=== PATIENT | male | born 1995 | race African-American/Black ===

== ENCOUNTER 2018-05-05 22:47 | Emergency (ER) | payer SELFPAY ==
[~2018-05-05] VITALS: Ht 185.4 cm; Wt 90.0 kg
[2018-05-06] MEDS ORDERED: MORPHINE SULFATE 4 MG/ML CPJ (NOT FOR IM USE) IV ONE ×2 (00:15→04:30)
[2018-05-06 02:52] LABS: HEMATOCRIT. 43.4 % (42.0-52.0); HEMOGLOBIN. 15.2 g/dL (14.0-18.0); MEAN CORPUSCULAR VOLUME 91.2 fL (80.0-94.0); MEAN PLATELET VOLUME 9.2 fl (7.4-10.4); PLATELET 179 x1000/uL (130-400); RED BLOOD CELL COUNT 4.75 mill/uL (4.7-6.1); RED CELL DISTRIBUTION WIDTH 12.7 % (11.6-14.6)
[2018-05-06 02:54] LABS: INR 1.1; PROTHROMBIN TIME 11.4 sec (9.1-11.1)
[2018-05-06 02:56] LABS: CHLORIDE 106 mEq/L (98-107)
[2018-05-06] MEDS ORDERED: SODIUM CHLORIDE 0.9% 1,000 ML IV ONE (04:28)
[2018-05-06] MEDS ORDERED: ONDANSETRON HCL 4MG/2ML VIAL IV ONE (04:30)
[2018-05-06 05:17] VITALS: BP 133/73
[2018-05-06] MEDS ORDERED: IOHEXOL-300 100 ML BOTTLE ONE (06:46)
[2018-05-06 07:48] LABS: PLATELET ESTIMATE NORMAL
== END 2018-05-06 06:36 | disposition short-term general hospital (02) ==
LOC: ER 05-06 01:27
DX: S22.31XA Fracture of one rib, right side, initial encounter for closed fracture (principal); S27.321A Contusion of lung, unilateral, initial encounter; J93.9 Pneumothorax, unspecified; W10.8XXA Fall (on) (from) other stairs and steps, initial encounter; Y93.89 Activity, other specified; Y92.89 Other specified places as the place of occurrence of the external cause; Y99.8 Other external cause status
CPT/HCPCS: 36415; 71101; 71250; 74177; 80053; 85025; 85610; 93005; 96374; 96375; 99285; J2270; J2405; J7030; Q9967; Z7610